=== PATIENT | female | born 1975 | race Caucasian/White ===

== ENCOUNTER → 2020-08-05 | Outpatient (REF) | payer OTHER | LOC: M LAB REF 10:20 | PROVIDERS: ATTEND Podiatrist Foot & Ankle Surgery | DX: L72.9 Follicular cyst of the skin and subcutaneous tissue, unspecified (principal) ==

== ENCOUNTER → 2024-12-27 | Outpatient (CLI) | payer OTHER ==
[2024-12-31 11:31] LABS: ANTI CENTROMERE ANTIBODY <1.0 NEG AI (<1.0 NEG); ANTI SCLERODERMA ANTIBODIES <1.0 NEG AI (<1.0 NEG)
[2025-01-03 23:47] LABS: RNA POLYMERASE III IgG AB < 20 Units (<20)
== END ==
LOC: M LAB 15:58
PROVIDERS: ATTEND Internal Medicine Gastroenterology
DX: K22.0 Achalasia of cardia (principal)

== ENCOUNTER → 2025-02-12 | Outpatient (REF) | payer OTHER | LOC: M LAB REF 14:40 | PROVIDERS: ATTEND Internal Medicine Gastroenterology | DX: Z86.19 Personal history of other infectious and parasitic diseases (principal) ==